=== PATIENT | male | born 1975 | race Two or more races ===

== ENCOUNTER 2016-09-03 15:26 | Inpatient (IN) | payer MEDICAID ==
[~2016-09-03] VITALS: Ht 170.2 cm; Wt 50.8 kg
--- NOTE | 2016-09-03 15:26 | NUR ---
HARITHA PRIETO FROM [facility] FOR [facility] H/H 7.3/23.1 WBC=20.4, RECTAL GXVZ=946.4. NAD NOTED. PT NON-VERBAL, OPENS EYES, ON VENTILATOR. PT PLACED IN GOWN AND MONITOR. DR DOWLING AT BEDSIDE FOR EVAL.
[2016-09-03] MEDS ORDERED: BACL20TA GT (16:14)
[2016-09-03] MEDS ORDERED: AMIN30LI4 GT (16:14)
[2016-09-03] MEDS ORDERED: LACT-209 GT (16:14)
[2016-09-03] MEDS ORDERED: DOCU50LI GT (16:14)
[2016-09-03] MEDS ORDERED: FERR300L GT (16:14)
[2016-09-03] MEDS ORDERED: ACID1TAB12 GT (16:14)
[2016-09-03] MEDS ORDERED: POTA20LI4 GT (16:14)
[2016-09-03] MEDS ORDERED: CHLO15MO2 MM (16:14)
[2016-09-03] MEDS ORDERED: OMEP20CA10 GT (16:14)
[2016-09-03] MEDS ORDERED: ENOX40DI9 SQ (16:14)
[2016-09-03] MEDS ORDERED: IPRA0.2S9 IH ×2 (16:14)
[2016-09-03] MEDS ORDERED: ALBU2.5V13 IH ×2 (16:14)
[2016-09-03] MEDS ORDERED: ACET650S26 GT (16:14)
[2016-09-03] MEDS ORDERED: LEVE100S GT (16:14)
[2016-09-03] MEDS ORDERED: LACO200T2 GT (16:14)
[2016-09-03] MEDS ORDERED: [UNRECOGNIZED DRUG - CODE] IV (16:16)
[2016-09-03 16:36] LABS: BASOPHILS # (AUTO) 0.1 /CMM (0.0-0.2); BASOPHILS % (AUTO) 0.4 % (0.0-2.0); EOSINOPHILS % (AUTO) 0.2 % (0.0-6.0); HEMATOCRIT 23 % (39-51); HEMOGLOBIN 7.8 g/dL (13.5-17.5); LYMPHOCYTES % (AUTO) 9.2 % (20.0-44.0); MEAN CORPUSCULAR HEMOGLOBIN 28 PG (26.0-33.0); MEAN CORPUSCULAR HGB CONC 34 g/dl (31.0-36.0); MEAN CORPUSCULAR VOLUME 83 fL (80-96); MONOCYTES # (AUTO) 1.1 /CMM (0.1-1.30); MONOCYTES % (AUTO) 5.3 % (2.0-12.0); NEUTROPHILS # (AUTO) 18.4 /CMM (1.8-8.9); NEUTROPHILS % (AUTO) 84.9 % (43.0-81.0); PLATELET COUNT (AUTO) 551 /CMM (150-450); RDW COEFFICIENT OF VARIATION 14.3 (11.5-15.0); RED BLOOD CELL COUNT(AUTO) 2.79 MIL/uL (4.5-6.0); WHITE BLOOD COUNT (AUTO) 21.6 K/uL (4.3-11.0)
--- NOTE | 2016-09-03 16:40 | NUR ---
MARK CATHETER INSERT ATTEMPT- UNABLE. MD AWARE. PER MD WILL TRY COUDE.
--- NOTE | 2016-09-03 16:45 | NUR ---
COUDE INSERTION ATTEMPT UNABLE- PER DR DOWLING OK NO URINE
[2016-09-03 16:49] LABS: CALCIUM, SERUM 9.1 mg/dL (8.5-10.1); CARBON DIOXIDE 30 mmol/L (21-32); CHLORIDE 102 mmol/L (98-107); CREATININE 0.7 mg/dL (0.6-1.3); GLUCOSE 100 mg/dL (74-106); POTASSIUM 3.8 mmol/L (3.5-5.1); SODIUM SERUM 139 mmol/L (136-145); UREA NITROGEN, BLOOD 19 mg/dL (7-18)
[2016-09-03 16:51] LABS: INR 1.1 (0.87-1.13); PROTHROMBIN TIME 11.5 SECS (9.5-12.7)
[2016-09-03 16:54] LABS: ALANINE AMINOTRANSFERASE 34 U/L (12-78); ALBUMIN 2.1 g/dL (3.4-5.0); ALKALINE PHOSPHATASE 229 U/L (46-116); ASPARTATE AMINOTRANSFERASE 21 U/L (15-37); BILIRUBIN,DIRECT 0.1 mg/dL (0.0-0.2); BILIRUBIN,TOTAL 0.3 mg/dL (0.2-1.0); LIPASE 187 U/L (73-393)
[2016-09-03 16:56] LABS: TROPONIN I < 0.017 ng/mL (0.00-0.056)
[2016-09-03 17:48] VITALS: BP 98/60
[2016-09-03] MEDS ORDERED: IV SET PRIMARY PUMP SET 1 EA INFUS.SET MC ONE ×3 (17:55→23:56)
[2016-09-03] MEDS ORDERED: IV NS 0.9% 1,000 ML ONE ×2 (17:55→17:58)
[2016-09-03] MEDS ORDERED: IV SET PRIMARY 1 EA INFUS.SET MC ONE (17:55)
--- NOTE | 2016-09-03 17:58 | NUR ---
CALLED PHARMACY FOR VANCOMYCIN AND ZOSYN
[2016-09-03] MEDS ORDERED: PIPERACILLIN /TAZOBACTAM 3.375 G in IV D5W 50 ML IV ONE (18:00)
[2016-09-03] MEDS ORDERED: IV NS 0.9% 1,000 ML BAG IV ONE (18:00)
[2016-09-03] MEDS ORDERED: VANCOMYCIN 1 GM in IV D5W 250 ML IV ONE (18:00)
--- NOTE | 2016-09-03 18:10 | NUR ---
PAGED DR GUPTA
--- NOTE | 2016-09-03 18:33 | NUR ---
REPAGED DR GUPTA
--- NOTE | 2016-09-03 19:00 | NUR ---
SPIKE LIMA SPOKE TO DR. CANDY MONTESINOS PT ADMISSION.
--- NOTE | 2016-09-03 19:23 | NUR ---
REPORT GIVEN TO SUNITA BLAS FOR HALLE
[2016-09-03 20:00] VITALS: BP 82/50
[2016-09-03] MEDS ORDERED: IPRATROPIUM NEB FS 0.5 MG/2.5 ML AMPUL.NEB IH PRN (20:00)
[2016-09-03] MEDS ORDERED: MAG HYDROX/AL HYDROX/SIMETH 30 ML UDC PO PRN (20:00)
[2016-09-03] MEDS ORDERED: Z GUARD REMEDY 2 OZ OINT TP PRN (20:00)
[2016-09-03] MEDS ORDERED: ALBUTEROL FS 2.5 MG/0.5 ML VIAL.NEB IH PRN (20:00)
[2016-09-03] MEDS ORDERED: MAGNESIUM HYDROXIDE 30 ML UDC PO PRN (20:00)
[2016-09-03] MEDS ORDERED: ONDANSETRON HCL/PF 4 MG/2 ML VIAL IVP PRN (20:00)
[2016-09-03] MEDS ORDERED: ACETAMINOPHEN 325 MG TABLET PO PRN (20:00)
[2016-09-03] MEDS ORDERED: VANCOMYCIN 1.25 GM in IV D5W 500 ML IV SCH (21:00)
[2016-09-03 22:00] VITALS: BP 134/97
[2016-09-03 23:12] LABS: ABG BASE EXCESS 3.1 mmol/L; ABG OXYGEN SATURATION 96.9 % (92.0-98.5); ABG PCO2 38.5 mmHg (35.0-45.0); ABG PH 7.465 (7.350-7.450); ABG PO2 99.5 mmHg (75.0-100.0); AaDO2 141.4 mmHg; COHb 1.6 % (0.5-1.5); MetHb 0.4 % (0.0-1.5); VENT MODE, BG AC 14 500 40% +5
[2016-09-03] MEDS: DOCUSATE SODIUM LIQ 100 MG/10 ML UDC GT SCH (23:31)
[2016-09-03] MEDS: CHLORHEXIDINE GLUCONATE 15 ML UDC MM SCH (23:31)
[2016-09-03] MEDS: LACOSAMIDE 50 MG TABLET GT SCH (23:31)
[2016-09-03] MEDS: HYDROCODONE/APAP 5/325MG 1 EACH TABLET PO PRN (23:31)
[2016-09-03] MEDS ORDERED: IV NS 0.9% 500 ML IV ONE (23:56)
[2016-09-03] MEDS ORDERED: SECONDARY IV SET 1 EA INFUS.SET MC ONE (23:56)
[2016-09-04] VITALS (11 sets, daily range): BP systolic 85–124; BP diastolic 46–68
[2016-09-04] MEDS ORDERED: PIPERACILLIN /TAZOBACTAM 4.5 G in IV D5W 50 ML IV SCH ×2
[2016-09-04] MEDS ORDERED: IV NS 0.9% 500 ML IV ONE
--- NOTE | 2016-09-04 | NUR ---
INFORMED DR. FRIED REGARDING PATIENT'S LOW H/H, PER MD WAIT FOR RECHECK IN AM. ALSO INFORMED REGARDING URINARY RETENTION AND PER MD WILL TALK TO AM WILL CONTINUE TO MONITOR PATIENT.
[2016-09-04] MEDS: PIPERACILLIN /TAZOBACTAM 3.375 G in IV D5W 50 ML IV SCH ×5 (00:02→23:26)
[2016-09-04] MEDS: ALBUTEROL FS 2.5 MG/0.5 ML VIAL.NEB IH SCH ×4 (01:45→20:26)
[2016-09-04] MEDS: IPRATROPIUM NEB FS 0.5 MG/2.5 ML AMPUL.NEB IH SCH ×4 (01:45→20:26)
[2016-09-04] MEDS ORDERED: SECONDARY IV SET 1 EA INFUS.SET MC ONE (03:15)
[2016-09-04] MEDS: VANCOMYCIN 1 GM in IV D5W 250 ML IV SCH ×3 (03:19→18:20)
[2016-09-04 07:58] LABS: BASOPHILS # (AUTO) 0.1 /CMM (0.0-0.2); BASOPHILS % (AUTO) 0.4 % (0.0-2.0); EOSINOPHILS % (AUTO) 0.1 % (0.0-6.0); LYMPHOCYTES # (AUTO) 1.4 /CMM (0.8-4.8); LYMPHOCYTES % (AUTO) 6.8 % (20.0-44.0); MEAN CORPUSCULAR HEMOGLOBIN 28 PG (26.0-33.0); MEAN CORPUSCULAR HGB CONC 34 g/dl (31.0-36.0); MEAN CORPUSCULAR VOLUME 82 fL (80-96); MONOCYTES # (AUTO) 0.9 /CMM (0.1-1.30); MONOCYTES % (AUTO) 4.3 % (2.0-12.0); NEUTROPHILS # (AUTO) 18.7 /CMM (1.8-8.9); NEUTROPHILS % (AUTO) 88.4 % (43.0-81.0); PLATELET COUNT (AUTO) 452 /CMM (150-450); RDW COEFFICIENT OF VARIATION 15.2 (11.5-15.0); RED BLOOD CELL COUNT(AUTO) 2.44 MIL/uL (4.5-6.0); WHITE BLOOD COUNT (AUTO) 21.1 K/uL (4.3-11.0)
--- NOTE | 2016-09-04 08:00 | NUR ---
TD/RN AM SHIFT INITIAL NOTES RECEIVED PT AWAKE IN BED, PT NON-VERBAL, NO GRIMACING NOTED BUT NOTED WITH TEMP 100.2. ON VENTILATOR SATURATING @ 98%, LUNG SOUNDS CLEAR, SUCTIONED FOR AIRWAY CLEARANCE. ON TELE WITH SINUS RHYTHM, HR 98. IV SITE FLUSHED, PATENT WITH NO S/S OF INFECTION. GTF TO BE FOLLOWED UP WITH DIETARY. SCHEDULED AM MEDS TO BE GIVEN. CL WITHIN REACHED AND SAFETY MAINTAINED. ON GOING MONITORING.
[2016-09-04 08:06] LABS: HEMOGLOBIN 6.9 g/dL (13.5-17.5)
[2016-09-04 08:07] LABS: HEMATOCRIT 20 % (39-51)
[2016-09-04 08:15] LABS: CALCIUM, SERUM 8.6 mg/dL (8.5-10.1); CREATININE 0.7 mg/dL (0.6-1.3); POTASSIUM 3.2 mmol/L (3.5-5.1)
[2016-09-04 08:38] LABS: LYMPHOCYTES % (MANUAL) 5 % (16-48); MONOCYTES % (MANUAL) 3 % (0-11.0); NEUTROPHILS % (MANUAL) 92 (42-76)
[2016-09-04] MEDS: CHLORHEXIDINE GLUCONATE 15 ML UDC MM SCH ×2 (08:59→21:33)
[2016-09-04] MEDS: ACIDOPHILUS/BULGARICUS 1 EACH TAB.CHEW GT SCH (08:59)
[2016-09-04] MEDS: PANTOPRAZOLE 40 MG TABLET.DR PO SCH (08:59)
[2016-09-04] MEDS: LACOSAMIDE 50 MG TABLET GT SCH ×2 (08:59→21:33)
[2016-09-04] MEDS: LEVETIRACETAM SOL (5 ML) 100 MG/ML UDC GT SCH ×3 (09:00→16:51)
[2016-09-04] MEDS: FERROUS SULFATE UDC 300 MG/5 ML UDC GT SCH ×2 (09:00→16:51)
[2016-09-04] MEDS: BACLOFEN (10 MG) 10 MG TABLET GT SCH ×2 (09:00→16:51)
[2016-09-04] MEDS: ACETAMINOPHEN 650 MG/20.3 ML UDC GT SCH (09:01)
[2016-09-04] MEDS: FIBERSOURCE HN 1,000 ML BOTTLE GT PRN (09:35)
[2016-09-04] MEDS ORDERED: BLOOD IV SET 1 EA INFUS.SET MC ONE (12:40)
[2016-09-04] MEDS ORDERED: IV NS 0.9% 250 ML IV ONE ×2 (12:40→16:56)
[2016-09-04] MEDS: POTASSIUM CHLORIDE 20 MEQ POWDER PACKET GT SCH ×2 (12:44→14:14)
[2016-09-04] MEDS ORDERED: FEE PK DOSING 1 MIN EA MC ONE (13:27)
--- NOTE | 2016-09-04 16:30 | NUR ---
TD/FREE LANCE MODEL CONSULT WOUND CARE TEAM HEADED DR. JAMES, SEEN & EXAMINED PT. NO NEW ORDERS RECEIVED. ON GOING MONITORING.
[2016-09-04] MEDS ORDERED: IV SET PRIMARY PUMP SET 1 EA INFUS.SET MC ONE (16:56)
--- NOTE | 2016-09-04 17:01 | NUR ---
TD/RN BLOOD TRANSFUSION - COMPLETED TRANSFUSED 1 UNIT OF PRBC. PT TOLERATED PROCEDURE. NO ADVERSE REACTION NOTED DURING OR AFTER TRANSFUSION. MONITORING CONTINUED.
[2016-09-04 17:04] LABS: APPEARANCE,URINE CLOUDY (CLEAR); BILIRUBIN,URINE NEGATIVE (NEGATIVE); BLOOD, URINE 2+ Ery/uL (NEGATIVE); COLOR,URINE YELLOW (YELLOW); KETONES,URINE NEGATIVE (NEGATIVE); LEUKOCYTE ESTERASE ,URINE 3+ (NEGATIVE); NITRITE, URINE NEGATIVE (NEGATIVE); PH,URINE 7.5 (5.0-8.0); PROTEIN,URINE 1+ mg/dl (NEGATIVE); UGLUCOSE NEGATIVE (NEGATIVE); UROBILINOGEN,URINE 0.2 EU/dL (0.2)
[2016-09-04 18:16] LABS: BACTERIA,URINE Few /HPF (None Seen); SQUAMOUS EPITHELIAL CELL,UR Few /HPF (None Seen); WBC,URINE 51-80 /HPF (0-3)
--- NOTE | 2016-09-04 19:35 | NUR ---
RN LEONARDO NOTES PT IN BED, NON VERBAL, NO S/SX OF RESPIRATORY DISTRESS NOTED. TRACH INTACT, ON MECH VENT AND TOLERATING CURRENT SETTINGS. ON GTF CONTINUOUS FEEDING,NO RESIDUAL NOTED.HOB ELEVATED. IV SITES PATENT. SIDE RAILS UP, BEDLOCKED AND IN LOWEST POSITION. WILL CONTINUE TO MONITOR.
[2016-09-04] MEDS: DOCUSATE SODIUM LIQ 100 MG/10 ML UDC GT SCH (21:33)
[2016-09-05] VITALS (7 sets, daily range): BP systolic 85–132; BP diastolic 40–105
[2016-09-05] MEDS: ALBUTEROL FS 2.5 MG/0.5 ML VIAL.NEB IH SCH ×4 (01:50→19:35)
[2016-09-05] MEDS: IPRATROPIUM NEB FS 0.5 MG/2.5 ML AMPUL.NEB IH SCH ×4 (01:50→19:35)
[2016-09-05] MEDS: VANCOMYCIN 1 GM in IV D5W 250 ML IV SCH ×2 (03:00→14:59)
--- NOTE | 2016-09-05 03:00 | NUR ---
RN LEONARDO NOTES VANCO TROUGH 31, VANCOMYCIN @ 0300 NOT GIVEN.
[2016-09-05] MEDS ORDERED: IV NS 0.9% 250 ML IV ONE (04:19)
[2016-09-05] MEDS: FIBERSOURCE HN 1,000 ML BOTTLE GT PRN (04:26)
[2016-09-05] MEDS: PIPERACILLIN /TAZOBACTAM 3.375 G in IV D5W 50 ML IV SCH ×3 (05:15→17:21)
[2016-09-05 06:46] LABS: CALCIUM, SERUM 8.4 mg/dL (8.5-10.1); CREATININE 0.6 mg/dL (0.6-1.3); POTASSIUM 3.4 mmol/L (3.5-5.1)
--- NOTE | 2016-09-05 07:00 | NUR ---
RN NOTES RECEIVED PT ON BED , NON VERBAL , VENT DEPENDENT , TOLERATING CURRENT SETTING WELL, NO DISTRESS NOTED ,TRACH CARE DONE, ON TF NUTREN AT 60 CC/HR , NO TF RESIDUAL NOTED ,SR UP x3, CALL LIGHT WITHIN EASY REACH, BED LOCKED AND IN LOWEST POSITION , R HAND AND L HAND IV SITES CDI, WILL CONTINUE TO MONITOR PT CLOSELY AND NOTIFY MD FOR ANY SIGNIFICANT CHANGES.
--- NOTE | 2016-09-05 07:12 | NUR ---
RN LEONARDO CLOSING NOTES NO SIGNIFICANT CHANGES OVERNIGHT, PT TOLERATING CURRENT MECHANICAL VENT SETTINGS. ALL MEDS GIVEN ORDERED, IV SITE IS PATENT, NO S/SX OF INFECTION OR INFILTRATION NOTE. WOUND CARE DONE, KEPT PT CLEAN AND DRY THROUGHOUT THE SHIFT. ON TELE MONITOR SINUS RHYTHM, ON CONTINUOUS GT FEEDING, HOB ELEVATED. AL SAFETY MEASURES MAINTAINED, ENDORSED TO AM NURSE FOR CONTINUATION OF CARE.
[2016-09-05] MEDS: LEVETIRACETAM SOL (5 ML) 100 MG/ML UDC GT SCH ×3 (08:08→16:35)
[2016-09-05] MEDS: FERROUS SULFATE UDC 300 MG/5 ML UDC GT SCH ×2 (08:08→16:35)
[2016-09-05] MEDS: BACLOFEN (10 MG) 10 MG TABLET GT SCH ×2 (08:09→16:35)
[2016-09-05] MEDS: LACOSAMIDE 50 MG TABLET GT SCH ×2 (08:09→21:55)
[2016-09-05] MEDS: ACIDOPHILUS/BULGARICUS 1 EACH TAB.CHEW GT SCH (08:09)
[2016-09-05] MEDS: CHLORHEXIDINE GLUCONATE 15 ML UDC MM SCH ×2 (08:09→21:55)
[2016-09-05] MEDS: PANTOPRAZOLE 40 MG TABLET.DR PO SCH (08:09)
[2016-09-05] MEDS: ACETAMINOPHEN 650 MG/20.3 ML UDC GT SCH (08:09)
--- NOTE | 2016-09-05 08:10 | NUR ---
WOUND CARE CONSULT: PT PRESENTS WITH CALLUSED PEELING SKIN TO LEFT HEEL, SCARRING TO RT HEEL AND SACRUM/BUTTOCKS, PRESENT ON ADMISSION. PT IS IMMOBILE AND INCONTINENT. CONDOM CATH NOTED. PT ON YESENIA ISOFLEX LOW AIRLOSS BED. ALL SKIN PROTECTION MEASURES IN PLACE AND DISCUSSED WITH NURSING STAFF. MD IN AGREEMENT WITH PLAN OF CARE. Addendum: 09/05/16 at 0814 by KATHY LINDSAY WNDNU Amended: Links added.
[2016-09-05 08:18] LABS: BASOPHILS % (AUTO) 0.2 % (0.0-2.0); EOSINOPHILS # (AUTO) 0.1 /CMM (0.0-0.7); EOSINOPHILS % (AUTO) 0.5 % (0.0-6.0); HEMATOCRIT 22 % (39-51); HEMOGLOBIN 7.4 g/dL (13.5-17.5); LYMPHOCYTES # (AUTO) 1.3 /CMM (0.8-4.8); LYMPHOCYTES % (AUTO) 7.5 % (20.0-44.0); MEAN CORPUSCULAR HEMOGLOBIN 29 PG (26.0-33.0); MEAN CORPUSCULAR HGB CONC 33 g/dl (31.0-36.0); MEAN CORPUSCULAR VOLUME 86 fL (80-96); MONOCYTES # (AUTO) 0.6 /CMM (0.1-1.30); MONOCYTES % (AUTO) 3.7 % (2.0-12.0); NEUTROPHILS % (AUTO) 88.1 % (43.0-81.0); PLATELET COUNT (AUTO) 404 /CMM (150-450); RDW COEFFICIENT OF VARIATION 15.1 (11.5-15.0); RED BLOOD CELL COUNT(AUTO) 2.58 MIL/uL (4.5-6.0); WHITE BLOOD COUNT (AUTO) 17.1 K/uL (4.3-11.0)
--- NOTE | 2016-09-05 12:00 | NUR ---
RN NOTES TRACH CARE DONE, NO TF RESIDUAL NOTED, CONTINUE TO MONITOR .
[2016-09-05] MEDS ORDERED: POTASSIUM CHLORIDE 20 MEQ POWDER PACKET GT SCH (14:00)
--- NOTE | 2016-09-05 18:14 | NUR ---
RN NOTES PT REMAINS STABLE, NON VERBAL , TOLERATING VENT SETTING WELL, VSS STABLE , MEDICATED PER MD ORDER . SR UP x3, CALL LIGHT WITHIN EASY REACH, NO SIGNIFICANT CHANGES NOTED ON THIS SHIFT .
--- NOTE | 2016-09-05 19:20 | NUR ---
RN INITIAL NOTE RECEIVED PT IN NO ACUTE DISTRESS IN BED. PT OPENS EYES AND IS NON VERBAL. PT IS ON MECHANICAL VENT VIA TRACH. TRACH SITE IS CLEAN DRY AND INTACT. PT TOLERATING VENT SETTINGS WELL. PT IS ON TELE WITH SR ON THE MONITOR. PT HAS CONDOM CATH THAT IS CLEAN DRY INTACT AND PATENT WITH YELLOW COLOR URINE DRAINING. PT HAS GTUBE THAT IS CLEAN DRY AND INTACT. PT HAS NUTREN @ 60ML/HR AND TOLERATING WELL WITH 0 RESIDUAL. PT HAS R HAND 22G THAT IS CLEAN DRY INTACT AND PATENT WITH SALINE LOCK. PT HAS L HAND 20G THAT IS CLEAN DRY INTACT AND PATENT WITH NS @ TKO. BED IN LOW LOCK POSITION WITH RIALS UP X 2. CALL LIGHT WITHIN REACH AND ALL SAFETY MEASURES ENSURED AND CARRIED OUT WILL CONTINUE TO MONITOR PT.
[2016-09-05] MEDS: DOCUSATE SODIUM LIQ 100 MG/10 ML UDC GT SCH (21:55)
[2016-09-06] VITALS (14 sets, daily range): BP systolic 82–107; BP diastolic 40–69
[2016-09-06] MEDS: PIPERACILLIN /TAZOBACTAM 3.375 G in IV D5W 50 ML IV SCH ×5 (00:31→23:07)
[2016-09-06] MEDS: IPRATROPIUM NEB FS 0.5 MG/2.5 ML AMPUL.NEB IH SCH ×4 (01:06→20:14)
[2016-09-06] MEDS: ALBUTEROL FS 2.5 MG/0.5 ML VIAL.NEB IH SCH ×4 (01:07→20:14)
[2016-09-06] MEDS: PANTOPRAZOLE 40 MG TABLET.DR PO SCH (06:36)
--- NOTE | 2016-09-06 07:14 | NUR ---
called sarah and teresita jorge to obtain consent for possible contrast dye with CT scan. no answer, left message
[2016-09-06 07:23] LABS: CALCIUM, SERUM 8.6 mg/dL (8.5-10.1); CREATININE 0.6 mg/dL (0.6-1.3); MAGNESIUM 1.9 mg/dL (1.8-2.4); POTASSIUM 3.1 mmol/L (3.5-5.1)
--- NOTE | 2016-09-06 07:28 | NUR ---
RN CLOSING NOTE PT REMAINS IN NO ACUTE DISTRESS IN BED. PT TOLERATED VENT SETTING WELL. PT DID NOT HAVE ANY SIGNIFICANT CHANGE IN CONDITION DURING SHIFT. ALL NEEDS MET ALL ORDERS CARRIED OUT. WILL ENDORSE TO AM RN FOR CONTINUITY OF CARE.
[2016-09-06] MEDS: VANCOMYCIN 1 GM in IV D5W 250 ML IV SCH (07:47)
[2016-09-06 07:54] LABS: BASOPHILS % (AUTO) 0.3 % (0.0-2.0); EOSINOPHILS # (AUTO) 0.2 /CMM (0.0-0.7); EOSINOPHILS % (AUTO) 1.8 % (0.0-6.0); LYMPHOCYTES # (AUTO) 1.5 /CMM (0.8-4.8); LYMPHOCYTES % (AUTO) 12.6 % (20.0-44.0); MEAN CORPUSCULAR HEMOGLOBIN 29 PG (26.0-33.0); MEAN CORPUSCULAR HGB CONC 34 g/dl (31.0-36.0); MEAN CORPUSCULAR VOLUME 85 fL (80-96); MONOCYTES # (AUTO) 0.7 /CMM (0.1-1.30); MONOCYTES % (AUTO) 5.4 % (2.0-12.0); NEUTROPHILS # (AUTO) 9.7 /CMM (1.8-8.9); NEUTROPHILS % (AUTO) 79.9 % (43.0-81.0); PLATELET COUNT (AUTO) 425 /CMM (150-450); RDW COEFFICIENT OF VARIATION 15.4 (11.5-15.0); RED BLOOD CELL COUNT(AUTO) 2.38 MIL/uL (4.5-6.0); WHITE BLOOD COUNT (AUTO) 12.2 K/uL (4.3-11.0)
[2016-09-06 07:59] LABS: HEMOGLOBIN 6.8 g/dL (13.5-17.5)
[2016-09-06 08:00] LABS: HEMATOCRIT 20 % (39-51)
[2016-09-06 08:14] LABS: BAND % (MANUAL) 1 % (0.0-5.0); EOSINOPHILS % (MANUAL) 4 % (0-4); LYMPHOCYTES % (MANUAL) 15 % (16-48); MONOCYTES % (MANUAL) 5 % (0-11.0); NEUTROPHILS % (MANUAL) 75 (42-76)
[2016-09-06] MEDS: LEVETIRACETAM SOL (5 ML) 100 MG/ML UDC GT SCH ×3 (08:29→16:45)
[2016-09-06] MEDS: FERROUS SULFATE UDC 300 MG/5 ML UDC GT SCH ×2 (08:29→16:45)
[2016-09-06] MEDS: ACETAMINOPHEN 650 MG/20.3 ML UDC GT SCH (08:29)
[2016-09-06] MEDS: ACIDOPHILUS/BULGARICUS 1 EACH TAB.CHEW GT SCH (08:29)
[2016-09-06] MEDS: CHLORHEXIDINE GLUCONATE 15 ML UDC MM SCH ×2 (08:29→21:06)
[2016-09-06] MEDS: LACOSAMIDE 50 MG TABLET GT SCH ×2 (08:29→21:06)
[2016-09-06] MEDS: BACLOFEN (10 MG) 10 MG TABLET GT SCH ×2 (08:30→16:45)
--- NOTE | 2016-09-06 10:27 | NUR ---
HGB, BP& HR NOTE H/H= 6.8/20 TODAY. BP IN KENNY IS 72/40, LLE IS 95/47, HR 51. INFORMED MD GUPTA OF THIS. 1 NEW ORDER 1UNIT PRBC AND F/U WITH POST TRANSFUSION.
[2016-09-06] MEDS ORDERED: BLOOD IV SET 1 EA INFUS.SET MC ONE (10:42)
[2016-09-06] MEDS ORDERED: IV NS 0.9% 250 ML IV ONE (10:42)
--- NOTE | 2016-09-06 10:54 | NUR ---
RECEIVED TELEPHONE CONSENT FOR CT ABD WITH CONTRAST FROM GRECIA STERLING- BROTHER OF PATIENT. WAN BLEDSOE TRANSLATED AND WITNESS CONSENT. INFORMED RADIOLOGY THAT CONSENT SIGNED HOWEVER PATIENT NEEDS BLOOD TRANSFUSION FIRST TO STABILIZE.
--- NOTE | 2016-09-06 10:57 | NUR ---
CT ABD PELVIS WITH CONTRAST TO BE DONE 1700 FOLLOWING BLOOD TRANSFUSION PER THOM BLAS
[2016-09-06] MEDS ORDERED: POTASSIUM CHLORIDE 20 MEQ TAB.PRT.SR PO SCH (11:30)
[2016-09-06] MEDS: POTASSIUM CHLORIDE 20 MEQ POWDER PACKET NG SCH ×2 (12:14→12:32)
--- NOTE | 2016-09-06 17:07 | NUR ---
PT. NOT READY FOR CT PER RN (THOM). NURSE WILL CALL US WHEN READY.
--- NOTE | 2016-09-06 19:30 | NUR ---
TAPERING MACHINE OPERATOR INITIAL NOTES PT IS IN BED, HOB ELEVATED, PT IS AWAKE, NONVERBAL, TRACH IS INTACT, ON MECHANICAL VENT, NO RESPIRATORY DISTRESS NOTED, IV SITE IS FLUSHED AND PATENT, ON TKO. ON GT FEEDING, ON CONTINUOUS FEEDING, NO RESIDUAL NOTED, PT WAS TURNED AND REPOSITIONED, SIDE RAILS UP. BED LOCKED AND IN LOWEST POSITION. WILL CONTINUE ATB TX, MONITOR V/S AND LABS CLOSELY.
--- NOTE | 2016-09-06 19:34 | NUR ---
END OF SHIFT TOLERATED BLOOD TRANSFUSION PER VS. CT SCAN POSTPONED FOR AM, NIGHT NURSE AWARE TO BE NPO 4 HR PRIOR. PATIENT HAD LONG TRANSFUSION, UNABLE TO HAVE CT SCAN THIS SHIFT. AFEBRILE. REPOSITIONED Q2, PROVIDED EXTENSIVE SKIN CARE. LOC UNCHANGED, RESPIRATORY STATUS UNCHANGED. CALL LIGHT IN REACH.
[2016-09-06] MEDS: DOCUSATE SODIUM LIQ 100 MG/10 ML UDC GT SCH (21:06)
[2016-09-06] MEDS: HYDROCODONE/APAP 5/325MG 1 EACH TABLET PO PRN (23:09)
[2016-09-07] VITALS (7 sets, daily range): BP systolic 95–103; BP diastolic 48–64
[2016-09-07] MEDS: IPRATROPIUM NEB FS 0.5 MG/2.5 ML AMPUL.NEB IH SCH ×4 (01:33→19:11)
[2016-09-07] MEDS: ALBUTEROL FS 2.5 MG/0.5 ML VIAL.NEB IH SCH ×4 (01:33→19:11)
[2016-09-07] MEDS ORDERED: IV NS 0.9% 250 ML IV ONE ×2 (02:17→09:34)
[2016-09-07] MEDS: VANCOMYCIN 1 GM in IV D5W 250 ML IV SCH ×2 (02:23→20:25)
[2016-09-07] MEDS: FIBERSOURCE HN 1,000 ML BOTTLE GT PRN (02:24)
[2016-09-07] MEDS: PIPERACILLIN /TAZOBACTAM 3.375 G in IV D5W 50 ML IV SCH ×3 (05:46→17:05)
--- NOTE | 2016-09-07 07:12 | NUR ---
LICENSED FUNERAL DIRECTOR CLOSING NOTES NO SIGNIFICANT CHANGES OVERNIGHT. PT TOLERATING CURRENT MECHANICAL VENT SETTING, NO RESPIRATORY DISTRESS NOTED, AFEBRILE. NPO POST 4AM FOR CT SCAN WITH CONTRAST SCHEDULED FOR 9AM. WOUND TREATMENT DONE, KEPT PT CLEAN AND DRY, ALL MEDS GIVEN ORDERED AND TOLERATED IT WELL. SIDE RAILS UP, BED LOCKED AND IN LOWEST POSITION, ENDORSED TO THE AM NURSE FOR CONTINUATION OF CARE.
--- NOTE | 2016-09-07 07:15 | NUR ---
RN INITIAL NOTE PT RECEIVED IN BED, RESTING. NO S/S OF PAIN OR DISCOMFORT. PT IS ON MECHANICAL VENT., VIA TRACH, PORTEX #8, AC-14, VT-500, FI02-40%, PEEP-5. SATING WELL. NO S/S OF RESPIRATORY DISTRESS OR SOB. PATIENT IS SINUS RHYTHM ON TELE MONITOR. HEART RATE 110BPM. PATIENT IS ON NPO STATUS PENDING CT SCAN OF ABDOMEN WITH CONTRAST SCHEDULED FOR THIS AM. GTUBE CLAMPED. IV SITE FLUSHED AND PATENT. DRESSING C/D/I. SKIN IS WARM AND DRY TO TOUCH. SAFETY PRECAUTIONS IMPLEMENTED, BED IN LOCKED, LOW POSITION WITH TWO SIDE RAILS UP. CALL LIGHT WITHIN EASY REACH. WILL CONTINUE TO MONITOR CLOSELY.
[2016-09-07] MEDS: PANTOPRAZOLE 40 MG TABLET.DR PO SCH (07:30)
[2016-09-07 07:34] LABS: CALCIUM, SERUM 8.7 mg/dL (8.5-10.1); CREATININE 0.7 mg/dL (0.6-1.3); POTASSIUM 3.3 mmol/L (3.5-5.1)
[2016-09-07] MEDS: LACOSAMIDE 50 MG TABLET GT SCH ×2 (09:00→20:25)
[2016-09-07] MEDS: ACETAMINOPHEN 650 MG/20.3 ML UDC GT SCH (09:00)
[2016-09-07] MEDS: LEVETIRACETAM SOL (5 ML) 100 MG/ML UDC GT SCH ×3 (09:00→16:45)
[2016-09-07] MEDS: ACIDOPHILUS/BULGARICUS 1 EACH TAB.CHEW GT SCH (09:00)
[2016-09-07] MEDS: CHLORHEXIDINE GLUCONATE 15 ML UDC MM SCH ×3 (09:00→20:25)
[2016-09-07] MEDS: FERROUS SULFATE UDC 300 MG/5 ML UDC GT SCH ×2 (09:00→16:45)
[2016-09-07] MEDS: BACLOFEN (10 MG) 10 MG TABLET GT SCH ×2 (09:00→16:45)
[2016-09-07] MEDS ORDERED: CT SWABBABLE VALVE TRANS SET 1 EA INFUS.SET MC ONE (09:34)
[2016-09-07] MEDS ORDERED: IOHEXOL-300 100 ML VIAL IV ONE (09:34)
--- NOTE | 2016-09-07 10:15 | NUR ---
RN NOTE PATIENT RETURNED FROM CT. FEEDING RESUMED.
[2016-09-07] MEDS ORDERED: POTASSIUM CHLORIDE 20 MEQ POWDER PACKET NG SCH (10:30)
[2016-09-07] MEDS: HYDROCODONE/APAP 5/325MG 1 EACH TABLET PO PRN ×2 (10:43→16:45)
[2016-09-07] MEDS ORDERED: FIBERSOURCE HN 1,000 ML BOTTLE GT PRN ×3 (16:00→17:00)
--- NOTE | 2016-09-07 19:01 | NUR ---
RN CLOSING NOTE ALL MD ORDERS CARRIED OUT. PATIENT KEPT CLEAN AND DRY. SAFETY PRECAUTIONS IN PLACE AT ALL TIMES. ISOLATION PRECAUTIONS OBSERVED ALWAYS. WILL GIVE REPORT TO PM RN FOR HALLE.
[2016-09-07] MEDS: DOCUSATE SODIUM LIQ 100 MG/10 ML UDC GT SCH (20:25)
[2016-09-08] VITALS (7 sets, daily range): BP systolic 92–123; BP diastolic 49–85
[2016-09-08] MEDS: PIPERACILLIN /TAZOBACTAM 3.375 G in IV D5W 50 ML IV SCH ×5 (00:17→23:59)
[2016-09-08] MEDS: IPRATROPIUM NEB FS 0.5 MG/2.5 ML AMPUL.NEB IH SCH ×4 (01:07→20:03)
[2016-09-08] MEDS: ALBUTEROL FS 2.5 MG/0.5 ML VIAL.NEB IH SCH ×4 (01:07→20:03)
[2016-09-08] MEDS ORDERED: IV NS 0.9% 250 ML IV ONE (05:20)
[2016-09-08 06:33] LABS: CALCIUM, SERUM 8.5 mg/dL (8.5-10.1); CREATININE 0.7 mg/dL (0.6-1.3)
[2016-09-08 06:35] LABS: BASOPHILS % (AUTO) 0.2 % (0.0-2.0); EOSINOPHILS # (AUTO) 0.1 /CMM (0.0-0.7); EOSINOPHILS % (AUTO) 0.9 % (0.0-6.0); HEMATOCRIT 25 % (39-51); HEMOGLOBIN 8.4 g/dL (13.5-17.5); LYMPHOCYTES # (AUTO) 1.6 /CMM (0.8-4.8); LYMPHOCYTES % (AUTO) 9.8 % (20.0-44.0); MEAN CORPUSCULAR HEMOGLOBIN 29 PG (26.0-33.0); MEAN CORPUSCULAR HGB CONC 34 g/dl (31.0-36.0); MEAN CORPUSCULAR VOLUME 87 fL (80-96); MONOCYTES # (AUTO) 0.5 /CMM (0.1-1.30); MONOCYTES % (AUTO) 3.2 % (2.0-12.0); NEUTROPHILS # (AUTO) 13.7 /CMM (1.8-8.9); NEUTROPHILS % (AUTO) 85.9 % (43.0-81.0); PLATELET COUNT (AUTO) 402 /CMM (150-450); RDW COEFFICIENT OF VARIATION 16.4 (11.5-15.0); RED BLOOD CELL COUNT(AUTO) 2.86 MIL/uL (4.5-6.0); WHITE BLOOD COUNT (AUTO) 15.9 K/uL (4.3-11.0)
--- NOTE | 2016-09-08 07:30 | NUR ---
RN NOTE PT RECEIVED IN BED, RESTING. NO S/S OF PAIN OR DISCOMFORT. PT IS ON MECHANICAL VENT., VIA TRACH, PORTEX #8, AC-14, VT-500, FI02-40%, PEEP-5. SATING WELL. NO S/S OF RESPIRATORY DISTRESS OR SOB. PATIENT IS SINUS RHYTHM ON TELE MONITOR. IV SITE FLUSHED AND PATENT. DRESSING C/D/I. GTF FIBERSOURCE@60ML/HR NO RESIDUAL NOTED. SKIN WARM AND DRY TO TOUCH. SAFETY PRECAUTIONS IMPLEMENTED, BED IN LOCKED, LOW POSITION WITH TWO SIDE RAILS UP. CALL LIGHT WITHIN EASY REACH. WILL CONTINUE TO MONITOR CLOSELY.
[2016-09-08] MEDS: FERROUS SULFATE UDC 300 MG/5 ML UDC GT SCH ×2 (09:32→17:04)
[2016-09-08] MEDS: ACETAMINOPHEN 650 MG/20.3 ML UDC GT SCH (09:32)
[2016-09-08] MEDS: CHLORHEXIDINE GLUCONATE 15 ML UDC MM SCH ×2 (09:32→21:21)
[2016-09-08] MEDS: LEVETIRACETAM SOL (5 ML) 100 MG/ML UDC GT SCH ×3 (09:32→17:04)
[2016-09-08] MEDS: ACIDOPHILUS/BULGARICUS 1 EACH TAB.CHEW GT SCH (09:33)
[2016-09-08] MEDS: BACLOFEN (10 MG) 10 MG TABLET GT SCH ×2 (09:33→17:04)
[2016-09-08] MEDS: PANTOPRAZOLE 40 MG TABLET.DR PO SCH (09:33)
[2016-09-08] MEDS: LACOSAMIDE 50 MG TABLET GT SCH ×2 (09:33→21:21)
[2016-09-08] MEDS: POTASSIUM CHLORIDE 20 MEQ TAB.PRT.SR PO SCH ×3 (11:16→14:10)
[2016-09-08] MEDS: VANCOMYCIN 1 GM in IV D5W 250 ML IV SCH (14:10)
--- NOTE | 2016-09-08 18:05 | NUR ---
RN NOTES PT'S HEART RATE NOTED 40'S. 45 BPM AT THIS TIME. CALLED [facility] DR GUPTA HAS BEEN PAGED
--- NOTE | 2016-09-08 18:09 | NUR ---
RN NOTES RECEIVED A CALL BACK FROM DR GUPTA REPORTED PT HEART RATE DROPPED TO 45BPM,NO HEART MEDS GIVEN TODAY. PER MD OBSERVED HR CLOSELY.
[2016-09-08] MEDS: DOCUSATE SODIUM LIQ 100 MG/10 ML UDC GT SCH (21:21)
[2016-09-08] MEDS ORDERED: SECONDARY IV SET 1 EA INFUS.SET MC ONE (23:58)
[2016-09-09] VITALS (7 sets, daily range): BP systolic 93–115; BP diastolic 51–64
[2016-09-09] MEDS: IPRATROPIUM NEB FS 0.5 MG/2.5 ML AMPUL.NEB IH SCH ×4 (01:57→19:52)
[2016-09-09] MEDS: ALBUTEROL FS 2.5 MG/0.5 ML VIAL.NEB IH SCH ×4 (01:57→19:52)
[2016-09-09] MEDS: PIPERACILLIN /TAZOBACTAM 3.375 G in IV D5W 50 ML IV SCH ×4 (05:57→23:24)
[2016-09-09 07:34] LABS: CALCIUM, SERUM 8.8 mg/dL (8.5-10.1); CREATININE 0.7 mg/dL (0.6-1.3); POTASSIUM 3.6 mmol/L (3.5-5.1)
[2016-09-09] MEDS: PANTOPRAZOLE 40 MG TABLET.DR PO SCH (07:56)
[2016-09-09] MEDS: FERROUS SULFATE UDC 300 MG/5 ML UDC GT SCH ×2 (08:00→16:35)
[2016-09-09] MEDS: ACIDOPHILUS/BULGARICUS 1 EACH TAB.CHEW GT SCH (08:00)
[2016-09-09] MEDS: CHLORHEXIDINE GLUCONATE 15 ML UDC MM SCH ×2 (08:00→21:01)
[2016-09-09] MEDS: LACOSAMIDE 50 MG TABLET GT SCH ×2 (08:00→21:00)
[2016-09-09] MEDS: LEVETIRACETAM SOL (5 ML) 100 MG/ML UDC GT SCH ×3 (08:00→16:35)
[2016-09-09] MEDS: ACETAMINOPHEN 650 MG/20.3 ML UDC GT SCH (08:00)
[2016-09-09] MEDS: BACLOFEN (10 MG) 10 MG TABLET GT SCH ×2 (08:01→16:35)
[2016-09-09] MEDS ORDERED: SECONDARY IV SET 1 EA INFUS.SET MC ONE (08:08)
[2016-09-09] MEDS: VANCOMYCIN 1 GM in IV D5W 250 ML IV SCH (08:22)
--- NOTE | 2016-09-09 13:29 | NUR ---
CAR DELIVERER WORKING ON TRANSFER TO [facility]
--- NOTE | 2016-09-09 18:56 | NUR ---
END OF SHIFT patient remains in stable condition @ baseline mentation and baseline respiratory function. no acute events. provided frequent ADL care/ repositioning and assessment this time. POC transfer o [facility]. photos od wounds placed in chart, no new skin break down. provided education to patient, however patient unable to verbalize understanding. will endorse to physiotherapist's assistant to call # provided for report [phone]. call light in reach
--- NOTE | 2016-09-09 19:30 | NUR ---
RN INITIAL NOTES RECEIVED PATIENT IN BED, ASLEEP AT THIS TIME, NONVERBAL, SOMETIMES/INTERMITTENTLY ABLE TO NOD YES/NO WHEN AWAKE, UNDERSTANDS [facility]HAR[facility]. TRACH MIDLINE AND INTACT, ON MECHANICAL VENT AT PRESCRIBED SETTINGS, TOLERATING WELL, FREE FROM ANY S/S OF RESPIRATORY DISTRESS, BREATHING EVEN AND NONLABORED. ON TELEMETRY MONITORING, REVEALING SINUS BRADYCARDIA, HR = 54 AT THIS TIME. GT PATENT AND INTACT, ONGOING TUBE FEEDINGS PRESCRIBED, TOLERATING WELL, NO GASTRIC RESIDUALS AT THIS TIME. IV SITE PATENT AND INTACT, FLUSHED WITH NS, FREE FROM ANY S/S OF INFILTRATION OR PHLEBITIS. HOB KEPT ELEVATED FOR ASPIRATION PRECAUTIONS. WILL CONTINUE TO CLOSELY MONITOR
[2016-09-09] MEDS: DOCUSATE SODIUM LIQ 100 MG/10 ML UDC GT SCH (21:00)
--- NOTE | 2016-09-09 21:00 | NUR ---
RN NOTES CALLED [facility], SPOKE TO NURSE VICTORIA TO GIVE REPORT. SCHEDULED TRANSPORT BY [facility], PICKUP TIME 0. WILL CONTINUE TO CLOSELY MONITOR
[2016-09-10] VITALS: BP 101/60
--- NOTE | 2016-09-10 00:30 | NUR ---
RN NOTES RECEIVED CALL BACK FROM [facility] REGARDING FURTHER DELAY IN [employer]ED [employer]/TRANSPORTATION TO [facility]. WILL CONTINUE TO MONITOR. CALLED [facility], NOTIFIED NURSE BRI REGARDING DELAY. WILL CONTINUE TO CLOSELY MONITOR
--- NOTE | 2016-09-10 02:10 | NUR ---
ROLL OUT MANAGER NOTES [facility] STAFF AT BEDSIDE, 2 fire crew worker AND 1 RT WITH UNIT #22. ALL PERTINENT PAPERWORK SIGNED AND GIVEN TO AMBULANCE STAFF. PATIENT LEFT UNIT IN STABLE CONDITION @ 0210. [facility] STAFF MADE AWARE REGARDING PICKUP.
== END 2016-09-10 02:07 | disposition short-term general hospital (02) | DRG 720 ==
LOC: ER 15:30 → TELE1 19:16 → TELE-TD 22:30 → TELE1 09-05 10:22
PROVIDERS: ADMIT Internal Medicine; ATTEND Internal Medicine
PROC: 5A1955Z Respiratory Ventilation, Greater than 96 Consecutive Hours (ICD-10-PCS; principal; 2016-09-03)
PROC: 30233N1 Transfusion of Nonautologous Red Blood Cells into Peripheral Vein, Percutaneous Approach (ICD-10-PCS; 2016-09-04)
DX: A41.9 Sepsis, unspecified organism (principal); J96.20 Acute and chronic respiratory failure, unspecified whether with hypoxia or hypercapnia; G93.40 Encephalopathy, unspecified; Z99.11 Dependence on respirator [ventilator] status; R40.3 Persistent vegetative state; J18.9 Pneumonia, unspecified organism; N17.9 Acute kidney failure, unspecified; E44.0 Moderate protein-calorie malnutrition; I96 Gangrene, not elsewhere classified; E87.2 Acidosis; Z93.0 Tracheostomy status; G40.909 Epilepsy, unspecified, not intractable, without status epilepticus; I10 Essential (primary) hypertension; Z93.1 Gastrostomy status; R13.10 Dysphagia, unspecified; E03.9 Hypothyroidism, unspecified; E87.6 Hypokalemia; D63.8 Anemia in other chronic diseases classified elsewhere; N39.0 Urinary tract infection, site not specified; J96.21 Acute and chronic respiratory failure with hypoxia; Z86.73 Personal history of transient ischemic attack (TIA), and cerebral infarction without residual deficits; L89.90 Pressure ulcer of unspecified site, unspecified stage; B35.3 Tinea pedis; B35.1 Tinea unguium; K74.60 Unspecified cirrhosis of liver; L53.9 Erythematous condition, unspecified; S90.31XA Contusion of right foot, initial encounter; X58.XXXA Exposure to other specified factors, initial encounter; Y92.129 Unspecified place in nursing home as the place of occurrence of the external cause; L89.620 Pressure ulcer of left heel, unstageable; N35.9 Urethral stricture, unspecified; N13.30 Unspecified hydronephrosis; N13.2 Hydronephrosis with renal and ureteral calculous obstruction; Z79.899 Other long term (current) drug therapy
CPT/HCPCS: 31720; 36415; 36600; 71010-TC; 76856-TC; 80048-TC; 80061-TC; 80076-TC; 80202-TC; 81000-TC; 82803-TC; 83605-TC; 83690-TC; 83735-TC; 84100-TC; 84484-TC; 85025-TC; 85730-TC; 86850-TC; 86921-TC; 87040-TC; 87086-TC; 94002-TC; 94003-TC; 94762-TC; 99082-TC; A4349; A4606; A6403; J1953; J2543; J3370; J7030; J7040; J7050; J7060; P9016-BL; Q9967; Z7610